=== PATIENT | female | born 1970 | race Caucasian/White ===

== ENCOUNTER → 2016-11-28 | Outpatient (CLI) | payer OTHER | LOC: BMCIMAGING 12:18 | PROVIDERS: ATTEND Emergency Medicine | DX: M54.5 Low back pain (principal); R50.9 Fever, unspecified; N12 Tubulo-interstitial nephritis, not specified as acute or chronic ==

== ENCOUNTER → 2017-02-25 | Outpatient (CLI) | payer OTHER | LOC: BMCIMAGING 11:27 | PROVIDERS: ATTEND Family Medicine | DX: R07.81 Pleurodynia (principal) ==

== ENCOUNTER 2017-03-12 01:33 | Inpatient (IN) | payer OTHER ==
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
[2017-03-12] MEDS ORDERED: ONDANSETRON 4 MG/2 ML VIAL IVP ONE (01:51)
[2017-03-12] MEDS ORDERED: NS 1,000 ML IV ONE (01:51)
[2017-03-12 02:18] LABS: % IMMATURE GRANULYOCYTES 0.4 % (0.0-1.1); ABSOLUTE IMMATURE GRANULOCYTES 0.05 10^3/uL (0.00-0.10); ADD DIFF? NO; ADD MORPH? NO; ADD SCAN? NO; ATYPICAL LYMPHOCYTE FLAG 0 (0-99); FRAGMENT RBC FLAG 0 (0-99); HEMATOCRIT 43.2 % (38.0-47.0); HEMOGLOBIN 15.5 g/dL (12.6-16.3); LEFT SHIFT FLG 0 (0-99); LIPEMIA HEMOLYSIS FLAG 90 (0-99); MEAN CELL HEMOGLOBIN 32.1 pg (27.9-34.1); MEAN CELL HEMOGLOBIN CONCENTR. 35.9 g/dL (32.4-36.7); MEAN CELL VOLUME 89.4 fL (81.5-99.8); MEAN PLATELET VOLUME 9.9 fL (8.7-11.7); PLATELET CLUMPS FLAG 0 (0-99); PLATELET COUNT 422 10^3/uL (150-400); RED BLOOD CELL COUNT 4.83 10^6/uL (4.18-5.33); RED CELL DISTRIBUTION WIDTH 13.2 % (11.5-15.2)
[2017-03-12 02:27] LABS: INR 1.04 (0.83-1.16); PROTIME(PATIENT) 13.5 SEC (12.0-15.0)
[2017-03-12 02:28] LABS: APTT 24.4 SEC (23.0-38.0)
[2017-03-12 02:34] LABS: ALANINE AMINOTRANSFERASE 36 IU/L (9-52); ALBUMIN 4.8 g/dL (3.5-5.0); ALKALINE PHOSPHATASE 122 IU/L (38-126); ANION GAP 17 mEq/L (8-16); ASPARTATE AMINOTRANSFERASE 26 IU/L (14-46); BILIRUBIN,TOTAL 0.8 mg/dL (0.1-1.4); BILIRUBIN-CONJUGATED 0.3 mg/dL (0.0-0.5); BILIRUBIN-UNCONJUGATED 0.5 mg/dL (0.0-1.1); CARBON DIOXIDE 21 mEq/l (22-31); CHLORIDE 103 mEq/L (97-110); CREATININE 0.8 mg/dL (0.6-1.0); GLOMERULAR FILTRATION RATE > 60; GLUCOSE 116 mg/dL (70-100); POTASSIUM 4.4 mEq/L (3.5-5.2); SODIUM 141 mEq/L (134-144); TOTAL PROTEIN 8.6 g/dL (6.3-8.2)
[2017-03-12] MEDS ORDERED: IOPAMIDOL (ISOVUE-300) 100 ML BTL ONE (02:44)
[2017-03-12] MEDS ORDERED: BENZOCAINE UNIT DOSE SPRAY HURRICAINE MM ONE (03:18)
[2017-03-12] MEDS ORDERED: LIDOCAINE 2% JELLY 20 ML (UROJECT) ONE (03:19)
[2017-03-12] MEDS ORDERED: LIDOCAINE 2% JELLY 20 ML (UROJECT) UR ONE (03:42)
[2017-03-12] MEDS ORDERED: BENZOCAINE UNIT DOSE SPRAY HURRICAINE MM PRN (03:43)
[2017-03-12] MEDS ORDERED: ONDANSETRON DISINTEGRATING 4 MG TAB PO PRN (03:54)
[2017-03-12] MEDS ORDERED: PROMETHAZINE HCL 25 MG/ML INJ IVP PRN (03:54)
[2017-03-12] MEDS ORDERED: ONDANSETRON 4 MG/2 ML VIAL IVP PRN (03:54)
[2017-03-12] MEDS ORDERED: HYDROmorphONE/DILAUDID 1 MG/ML SYR IVP PRN (03:54)
[2017-03-12] MEDS ORDERED: hydrALAZINE 20 MG/ML VIAL IVP PRN (03:54)
[2017-03-12] MEDS ORDERED: NS 1,000 ML IV SCH (04:00)
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
[2017-03-12 20:04] LABS: COLOR YELLOW; LEUKOCYTE ESTERASE,URINE 3+ (NEGATIVE); NITRITE,URINE POSITIVE (NEGATIVE)
[2017-03-12 20:09] LABS: BACTERIA TRACE /hpf (NONE SEEN); MUCUS TRACE /lpf (NONE-1+); WBC,URINE 25-50 /hpf (0-3)
[2017-03-13 04:56] LABS: % IMMATURE GRANULYOCYTES 0.3 % (0.0-1.1); ABSOLUTE IMMATURE GRANULOCYTES 0.02 10^3/uL (0.00-0.10); ADD DIFF? NO; ADD MORPH? NO; ADD SCAN? NO; ATYPICAL LYMPHOCYTE FLAG 10 (0-99); FRAGMENT RBC FLAG 0 (0-99); HEMATOCRIT 38.2 % (38.0-47.0); HEMOGLOBIN 13.3 g/dL (12.6-16.3); LEFT SHIFT FLG 0 (0-99); LIPEMIA HEMOLYSIS FLAG 90 (0-99); MEAN CELL HEMOGLOBIN 32.1 pg (27.9-34.1); MEAN CELL HEMOGLOBIN CONCENTR. 34.8 g/dL (32.4-36.7); MEAN CELL VOLUME 92.3 fL (81.5-99.8); MEAN PLATELET VOLUME 9.9 fL (8.7-11.7); PLATELET CLUMPS FLAG 0 (0-99); PLATELET COUNT 364 10^3/uL (150-400); RED BLOOD CELL COUNT 4.14 10^6/uL (4.18-5.33); RED CELL DISTRIBUTION WIDTH 13.7 % (11.5-15.2)
[2017-03-13 05:11] LABS: ANION GAP 12 mEq/L (8-16); CALCIUM 8.5 mg/dL (8.5-10.4); CARBON DIOXIDE 23 mEq/l (22-31); CHLORIDE 108 mEq/L (97-110); CREATININE 0.8 mg/dL (0.6-1.0); GLOMERULAR FILTRATION RATE > 60; GLUCOSE 65 mg/dL (70-100); SODIUM 143 mEq/L (134-144)
[2017-03-13] MEDS ORDERED: PHENOL 177 ML THROAT SPRAY PO PRN (05:47)
[2017-03-13] MEDS: KETOROLAC 15 MG/1 ML SDV IVP PRN ×2 (06:03→12:00)
[2017-03-13] MEDS ORDERED: D5W 1/2 NS W/ 20 KCl/L 1,000 ML IV SCH (08:45)
--- NOTE | 2017-03-13 09:45 | SOAPPROG ---
AMMY Progress Note Assessment/Plan: Assessment/Plan: - hospital day 2 for the 46-year-old female with a partial small-bowel obstruction, resolving Overnight the patient states that she has been passing flatus. Interestingly enough her in nasogastric tube output has been high over the last 24 hours. Her abdominal exam is reassuring, is soft nondistended nontender with good bowel sounds. Will attempt to clamp the tube this afternoon if she does well with this we will discontinue and start a diet. Anticipate she will either go home later today or tomorrow pending more robust bowel function. KUB this morning shows no radiographic evidence of bowel obstruction 03/13/17 09:44 Subjective: Passing gas Objective: Vital Signs Temp Pulse Resp BP Pulse Ox 36.6 C 62 16 129/81 H 97 03/13/17 07:25 03/13/17 07:25 03/13/17 07:25 03/13/17 07:25 03/13/17 07:25 Laboratory Results 03/13/17 04:25 03/13/17 04:25 03/12/17 03/13/17 03/14/17 05:59 05:59 05:59 Intake Total 1000 1200 Output Total 150 1700 Balance 850 -500 PT 13.5 SEC (12.0-15.0) 03/12/17 01:58 INR 1.04 (0.83-1.16) 03/12/17 01:58 ICD10 Worksheet Patient Problems: Problems Problem Status Onset SBO (small bowel obstruction) Acute
[2017-03-13] MEDS ORDERED: ACETAMINOPHEN 325 MG TAB PO PRN (17:59)
--- NOTE | 2017-03-14 08:33 | PDDCSUM ---
Discharge Summary Discharge Summary: DISCHARGE SUMMARY Date of Admission March 12 Date of Discharge March 14 DISCHARGE DIAGNOSES -partial small bowel obstruction, resolved HOSPITAL COURSE The patient was admitted from the ED for she had CT scan evidence of a small- bowel obstruction. She had a nasogastric tube for 24 hours which initially had high output but resolved. She had good bowel sounds, was tolerating regular diet and is passing flatus on day of discharge. Her abdominal pain had completely resolved. She was discharged home in stable condition on the morning of the DISCHARGE MEDICATIONS All home medications reconciled, no new medications DISPOSITION Home FOLLOW UP Follow up with her primary care physician as needed, no specific need for surgical follow-up
[2017-03-14 09:29] VITALS: BP 142/90; PULSE 69; RESP 16; TEMP 97.9; O2SAT 96
== END 2017-03-14 10:20 | disposition home or self-care (01) | DRG 390 ==
LOC: F3E 04:38
PROVIDERS: ADMIT Surgery; ATTEND Surgery
PROC: 0D9670Z Drainage of Stomach with Drainage Device, Via Natural or Artificial Opening (ICD-10-PCS; principal; 2017-03-12)
DX: K56.60 Unspecified intestinal obstruction (principal); Z90.49 Acquired absence of other specified parts of digestive tract; V89.9XXS Person injured in unspecified vehicle accident, sequela
CPT/HCPCS: 96374; J1885; J2405; Q9967

== ENCOUNTER → 2017-12-01 | Outpatient (CLI) | payer OTHER | LOC: BMCIMAGING 12:57 | PROVIDERS: ATTEND Registered Nurse General Practice | DX: Z12.31 Encounter for screening mammogram for malignant neoplasm of breast (principal) ==